=== PATIENT | male | born 1955 | race Caucasian/White ===

== ENCOUNTER 2019-02-26 23:02 | Emergency (ER) | payer BC, SELFPAY ==
[2019-02-26] MEDS ORDERED: Adacel (T-DAP) 0.5 ML SYRINGE ONE (23:15)
== END 2019-02-26 23:37 | disposition home or self-care (01) ==
LOC: ERS 23:02
DX: S01.411A Laceration without foreign body of right cheek and temporomandibular area, initial encounter (principal); W26.8XXA Contact with other sharp object(s), not elsewhere classified, initial encounter
CPT/HCPCS: 12013; 90471; 90715